=== PATIENT | male | born 1975 | race Two or more races ===

== ENCOUNTER 2019-08-18 11:17 | Emergency (ER) | payer OTHER ==
[~2019-08-18] VITALS: Ht 175.3 cm; Wt 78.5 kg
[2019-08-18] MEDS ORDERED: DIAZEPAM 5 MG TABLET ONE (11:40)
[2019-08-18] MEDS ORDERED: KETOROLAC 30 MG/1 ML ONE (11:40)
[2019-08-18] MEDS ORDERED: DIAZEPAM 5 MG TABLET PO ONE (12:00)
[2019-08-18] MEDS ORDERED: KETOROLAC 30 MG/1 ML IM ONE (12:00)
--- NOTE | 2019-08-18 12:13 | NUR ---
MRI SCREENING COMPLETE, FAXED TO DEPT. PT TO MRI.
--- NOTE | 2019-08-18 12:40 | NUR ---
PT BACK FROM MRI.
[2019-08-18 13:45] VITALS: BP 122/68
== END 2019-08-18 13:47 | disposition home or self-care (01) ==
LOC: ED 12:10
DX: S16.1XXA Strain of muscle, fascia and tendon at neck level, initial encounter (principal); V89.2XXA Person injured in unspecified motor-vehicle accident, traffic, initial encounter; Y93.I9 Activity, other involving external motion; Y92.488 Other paved roadways as the place of occurrence of the external cause; Y99.8 Other external cause status
CPT/HCPCS: 72141; 96372; 99284; J1885; J7512